=== PATIENT | male | born 1965 | race Two or more races ===

== ENCOUNTER 2022-08-07 15:35 | Inpatient (IN) | payer MEDICAID, OTHER ==
[~2022-08-07] VITALS: Ht 175.3 cm; Wt 91.7 kg
[2022-08-07] MEDS ORDERED: ceFAZolin 1GM/50ML 50 ML IV ONE (16:45)
[2022-08-07] MEDS ORDERED: LORazepam 2MG/ML-1ML VIAL IV ONE (16:45)
[2022-08-07 17:09] LABS: Basophils # (auto) 0 10 ^3/uL (0-0.2); Eosinophils # (auto) 0 10 ^3/uL (0-0.8); Hemoglobin 8.3 g/dL (13.5-17.5)
[2022-08-07 17:11] LABS: Basophils % (auto) 0.2 % (0.0-2.0); Lymphocytes # (auto) 0.5 10 ^3/uL (0.4-5.4); Lymphocytes % (auto) 3.4 % (10.0-50.0); Mean Corpuscular Hemoglobin 27.1 pg (28.0-32.0); Mean Corpuscular Hgb Conc. 30.7 g/dL (32.0-36.0); Mean Corpuscular Volume 88.3 fL (80.0-100.0); Monocytes % (auto) 7.3 % (0.0-12.0); Neutrophils # (auto) 12.5 10 ^3/uL (1.6-8.6); Neutrophils % (auto) 89.1 % (37.0-80.0); Red Blood Cells 3.06 10^6/uL (4.5-5.90); Red Cell Distribution Width 18.1 % (11.8-14.3); White Blood Cell 14.1 10^3/uL (4.4-10.8)
[2022-08-07 17:32] LABS: Albumin 2.3 g/dL (3.4-5.0); Calcium 8.8 mg/dL (8.5-10.1)
[2022-08-07 17:35] LABS: BUN/Creatinine Ratio 21.6 (10.0-20.0); Bilirubin, Total 0.8 mg/dL (0.2-1.0); Total Protein 7.1 g/dL (6.4-8.2)
[2022-08-07] MEDS ORDERED: VANCOMYCIN PER PHARMACY 0 MG IV SCH (18:00)
[2022-08-07] MEDS ORDERED: SODIUM CHLORIDE 0.9% 2,000 ML IV ONE (18:15)
[2022-08-07] MEDS ORDERED: SODIUM CHLORIDE 0.9% 500 ML IV ONE (18:15)
[2022-08-07 18:20] LABS: Potassium 5.7 mmol/L (3.5-5.1)
[2022-08-07 18:23] LABS: Lactic Acid w/Reflex 7.5 mmol/L (0.4-2.0)
[2022-08-07] MEDS ORDERED: ALBUTEROL SULF 2.5 MG/0.5ML(0.5%) NEB SOLN NEB ONE (18:45)
[2022-08-07] MEDS ORDERED: InsuLIN REG 1unit/0.01ml Soln (100units/ml) IV ONE (18:45)
[2022-08-07] MEDS ORDERED: DEXTROSE (50%) 50ML SYRG IV ONE (18:45)
[2022-08-07 18:59] LABS: INR 1.46 (0.9-1.15); Partial Thromboplastin Time 25.9 sec (24.6-33.4)
[2022-08-07] MEDS ORDERED: VANCOMYCIN 750mg/250ml 250 ML IV SCH (19:00)
[2022-08-07] MEDS ORDERED: CALCIUM GLUC 1,000mg/50ml-NS 50 ML IV ONE (19:15)
[2022-08-07] MEDS ORDERED: SODIUM BICARBONATE 8.4% INJ 50ML SYRINGE IV ONE (19:15)
[2022-08-07 20:42] LABS: Lactic Acid w/Reflex 4.3 mmol/L (0.4-2.0)
[2022-08-07] MEDS ORDERED: ETOMIDATE (2MG/ML) 20ML VIAL IV ONE ×2 (21:13→21:15)
[2022-08-07] MEDS ORDERED: SUCCINYLCHOLINE CHLORIDE 20 MG/ML 10ML VIAL IV ONE ×2 (21:14→21:15)
[2022-08-07] MEDS ORDERED: MIDAZOLAM DRIP 50 mg/50mL 50 ML IV ONE (21:18)
[2022-08-07] MEDS: MIDAZOLAM DRIP 50 mg/50mL 50 ML IV SCH (21:20)
[2022-08-07] MEDS: fentaNYL Drip 2500mCg/250mlNS 250 ML IV SCH (21:40)
[2022-08-07 21:52] LABS: Urine Bacteria NONE SEEN /hpf (None Seen); Urine Blood Negative /uL (Negative); Urine Specific Gravity 1.023 (1.001-1.035); Urine WBC 1 /hpf (0 - 3)
[2022-08-07 22:02] LABS: Alcohol, Urine < 3.0 mg/dL (0-10); Amphetamine Screen, Urine NEGATIVE (NEGATIVE); Barbiturate Scree,Urine NEGATIVE (NEGATIVE); Benzodiazephine Screen, Urine NEGATIVE (NEGATIVE); Cannabinoid Screen, Urine NEGATIVE (NEGATIVE); Cocaine Screen, Urine NEGATIVE (NEGATIVE); Opiate Scree,Urine NEGATIVE (NEGATIVE); Phencyclidine Screen, Urine NEGATIVE (NEGATIVE)
[2022-08-07] MEDS ORDERED: DEXTROSE 10% 250 ML IV ONE ×2 (22:02→22:15)
[2022-08-07] MEDS ORDERED: IODIXANOL 320MG/ML 100ML BTL IV ONE (22:50)
[2022-08-07 23:20] VITALS: BP 99/70
[2022-08-08] VITALS (60 sets, daily range): BP systolic 82–99; BP diastolic 49–70
[2022-08-08] MEDS: VANCOMYCIN 750mg/250ml 250 ML IV SCH ×2 (00:36→12:56)
[2022-08-08] MEDS ORDERED: MORPHINE SULFATE INJ 2 MG/ml SYRG IV PRN (00:45)
[2022-08-08] MEDS ORDERED: VANCOMYCIN PER PHARMACY 0 MG IV SCH (00:45)
[2022-08-08] MEDS ORDERED: ONDANSETRON HCL 4 MG/2 ML VIAL IV PRN (00:45)
[2022-08-08] MEDS ORDERED: NITROGLYCERIN 0.4 MG SL TAB SL PRN (00:45)
[2022-08-08] MEDS ORDERED: ACETAMINOPHEN 325 MG TAB PO PRN (00:45)
[2022-08-08] MEDS: PIPERACILLIN-TAZOB 3.375GM 100 ML IV SCH ×3 (04:16→17:27)
[2022-08-08] MEDS: SODIUM CHLORIDE 0.9% 1,000 ML IV SCH ×3 (05:56→23:12)
[2022-08-08] MEDS: NOREPINEPHRINE 8 MG/250ML KIT 250 ML IV SCH ×2 (06:33→17:23)
[2022-08-08 07:14] LABS: Basophils # (auto) 0.1 10 ^3/uL (0-0.2); Eosinophils # (auto) 0 10 ^3/uL (0-0.8); Hemoglobin 7.8 g/dL (13.5-17.5); Mean Corpuscular Hgb Conc. 32.1 g/dL (32.0-36.0); Neutrophils # (auto) 9.3 10 ^3/uL (1.6-8.6)
[2022-08-08 07:16] LABS: Basophils % (auto) 0.7 % (0.0-2.0); Eosinophils % (auto) 0.3 % (0.0-7.0); Hematocrit 24.3 % (41.0-53.0); Lymphocytes # (auto) 1.2 10 ^3/uL (0.4-5.4); Lymphocytes % (auto) 10.1 % (10.0-50.0); Mean Corpuscular Hemoglobin 27.6 pg (28.0-32.0); Mean Corpuscular Volume 85.9 fL (80.0-100.0); Monocytes % (auto) 8.3 % (0.0-12.0); Neutrophils % (auto) 80.6 % (37.0-80.0); Nucleated Red Blood Cells % 1.4 %; Red Blood Cells 2.82 10^6/uL (4.5-5.90); White Blood Cell 11.6 10^3/uL (4.4-10.8)
[2022-08-08 08:02] LABS: Albumin 2.2 g/dL (3.4-5.0); Calcium 8.7 mg/dL (8.5-10.1); Potassium 4.9 mmol/L (3.5-5.1)
[2022-08-08 08:05] LABS: BUN/Creatinine Ratio 22.8 (10.0-20.0); Bilirubin, Total 0.8 mg/dL (0.2-1.0); Total Protein 6.5 g/dL (6.4-8.2)
[2022-08-08] MEDS: MIDAZOLAM DRIP 50 mg/50mL 50 ML IV SCH ×3 (08:16→17:23)
[2022-08-08] MEDS: PANTOPRAZOLE 40 MG/10 ML VIAL INJ IV SCH ×2 (09:53→23:12)
[2022-08-08] MEDS ORDERED: PANTOPRAZOLE 40 MG/10 ML VIAL INJ IV SCH (10:00)
[2022-08-08] MEDS: ENOXAPARIN SOD 40 MG/0.4 ML SYRINGE SC SCH (10:08)
[2022-08-08] MEDS: fentaNYL Drip 2500mCg/250mlNS 250 ML IV SCH (17:27)
[2022-08-08] MEDS: DAKINS QUARTER STR 0.125% (NaHypochlorite) 473 ML TOPICAL SOL TOP SCH (23:13)
[2022-08-08] MEDS: NYSTATIN TOPICAL POWDER 15GM TOP SCH (23:13)
[2022-08-09] VITALS (91 sets, daily range): BP systolic 80–98; BP diastolic 35–70
[2022-08-09] MEDS: VANCOMYCIN 750mg/250ml 250 ML IV SCH ×2 (00:46→15:13)
[2022-08-09] MEDS: NOREPINEPHRINE 8 MG/250ML KIT 250 ML IV SCH ×4 (00:50→21:19)
[2022-08-09] MEDS: PIPERACILLIN-TAZOB 3.375GM 100 ML IV SCH ×3 (01:00→18:59)
[2022-08-09] MEDS: MIDAZOLAM DRIP 50 mg/50mL 50 ML IV SCH ×4 (02:32→23:22)
[2022-08-09 04:11] LABS: Basophils # (auto) 0.1 10 ^3/uL (0-0.2); Basophils % (auto) 0.7 % (0.0-2.0); Eosinophils # (auto) 0.1 10 ^3/uL (0-0.8); Lymphocytes # (auto) 0.8 10 ^3/uL (0.4-5.4)
[2022-08-09 04:14] LABS: Eosinophils % (auto) 0.8 % (0.0-7.0); Hematocrit 23.9 % (41.0-53.0); Hemoglobin 7.8 g/dL (13.5-17.5); Mean Corpuscular Hemoglobin 28.2 pg (28.0-32.0); Mean Corpuscular Hgb Conc. 32.6 g/dL (32.0-36.0); Mean Corpuscular Volume 86.5 fL (80.0-100.0); Monocytes # (auto) 1.2 10 ^3/uL (0-1.3); Monocytes % (auto) 9.7 % (0.0-12.0); Neutrophils # (auto) 10.3 10 ^3/uL (1.6-8.6); Neutrophils % (auto) 82.8 % (37.0-80.0); Nucleated Red Blood Cells % 0.9 %; Red Blood Cells 2.76 10^6/uL (4.5-5.90); Red Cell Distribution Width 17.7 % (11.8-14.3); White Blood Cell 12.5 10^3/uL (4.4-10.8)
[2022-08-09 04:31] LABS: Albumin 1.8 g/dL (3.4-5.0); Calcium 8.2 mg/dL (8.5-10.1); Potassium 4.4 mmol/L (3.5-5.1)
[2022-08-09 04:32] LABS: BUN/Creatinine Ratio 20.4 (10.0-20.0)
[2022-08-09 04:35] LABS: Bilirubin, Total 0.9 mg/dL (0.2-1.0)
[2022-08-09] MEDS: SODIUM CHLORIDE 0.9% 1,000 ML IV SCH (09:00)
[2022-08-09] MEDS: ENOXAPARIN SOD 40 MG/0.4 ML SYRINGE SC SCH (09:47)
[2022-08-09] MEDS: PANTOPRAZOLE 40 MG/10 ML VIAL INJ IV SCH ×2 (09:47→23:15)
[2022-08-09] MEDS: NYSTATIN TOPICAL POWDER 15GM TOP SCH ×2 (09:48→23:16)
[2022-08-09] MEDS: DAKINS QUARTER STR 0.125% (NaHypochlorite) 473 ML TOPICAL SOL TOP SCH ×2 (09:48→23:16)
[2022-08-09] MEDS: fentaNYL Drip 2500mCg/250mlNS 250 ML IV SCH (15:13)
[2022-08-09] MEDS: PHENYLEPHRINE IV 250 ML IV SCH (18:40)
[2022-08-09] MEDS ORDERED: CLINIMIX PER PHARMACY 0 ML IV SCH (20:30)
[2022-08-09] MEDS: AMINO ACID INFUSION IN D10W 1,000 ML IV NR (23:15)
[2022-08-09] MEDS: VANCOMYCIN 1GM/250ML 250 ML IV SCH (23:28)
[2022-08-09] MEDS: ACCU-CHEK COMFORT CURVE STRIP VI SCH (23:31)
[2022-08-09] MEDS: InsuLIN REG 1unit/0.01ml Soln (100units/ml) SC SCH (23:31)
[2022-08-10] VITALS (108 sets, daily range): BP systolic 76–136; BP diastolic 48–93
[2022-08-10] MEDS ORDERED: DEXTROSE (50%) 50ML SYRG IV SCH
[2022-08-10] MEDS: PIPERACILLIN-TAZOB 3.375GM 100 ML IV SCH ×3 (01:28→18:00)
[2022-08-10] MEDS: NOREPINEPHRINE 8 MG/250ML KIT 250 ML IV SCH ×5 (01:28→19:45)
[2022-08-10] MEDS: PHENYLEPHRINE IV 250 ML IV SCH ×3 (02:12→18:45)
[2022-08-10 03:51] LABS: Albumin 1.9 g/dL (3.4-5.0); Calcium 8.1 mg/dL (8.5-10.1); Magnesium 2.3 mg/dL (1.6-2.6); Potassium 4.4 mmol/L (3.5-5.1)
[2022-08-10 03:55] LABS: BUN/Creatinine Ratio 15.4 (10.0-20.0); Bilirubin, Total 0.8 mg/dL (0.2-1.0); Phosphorus 3.1 mg/dL (2.5-4.90); Total Protein 6.1 g/dL (6.4-8.2)
[2022-08-10] MEDS: ACCU-CHEK COMFORT CURVE STRIP VI SCH ×4 (05:28→23:44)
[2022-08-10] MEDS: InsuLIN REG 1unit/0.01ml Soln (100units/ml) SC SCH ×4 (05:28→23:48)
[2022-08-10] MEDS: MIDAZOLAM DRIP 50 mg/50mL 50 ML IV SCH ×3 (05:52→18:44)
[2022-08-10] MEDS: PANTOPRAZOLE 40 MG/10 ML VIAL INJ IV SCH ×2 (08:52→20:54)
[2022-08-10] MEDS: VANCOMYCIN 1GM/250ML 250 ML IV SCH ×2 (08:53→19:45)
[2022-08-10] MEDS: ENOXAPARIN SOD 40 MG/0.4 ML SYRINGE SC SCH (08:53)
[2022-08-10] MEDS: DAKINS QUARTER STR 0.125% (NaHypochlorite) 473 ML TOPICAL SOL TOP SCH ×2 (08:54→20:56)
[2022-08-10] MEDS: NYSTATIN TOPICAL POWDER 15GM TOP SCH ×2 (08:54→20:56)
[2022-08-10] MEDS: fentaNYL Drip 2500mCg/250mlNS 250 ML IV SCH (10:21)
[2022-08-10] MEDS ORDERED: ALBUMIN 25% 100 ML IV STA (10:58)
[2022-08-10] MEDS ORDERED: FUROSEMIDE INJECTION 100 MG in D5W 5% 100 ML IV STA (10:58)
[2022-08-10] MEDS: HYDROCORTISONE SOD SUCC 100 MG/2ML INJ VIAL IV SCH ×3 (12:13→23:44)
[2022-08-10] MEDS: AMINO ACID INFUSION IN D10W 1,000 ML IV NR (20:55)
[2022-08-10] MEDS: QUEtiapine FUMARATE 25 MG TAB PO SCH (20:55)
[2022-08-11] VITALS (106 sets, daily range): BP systolic 72–131; BP diastolic 42–85
[2022-08-11] MEDS: PIPERACILLIN-TAZOB 3.375GM 100 ML IV SCH ×3 (00:13→18:50)
[2022-08-11] MEDS: NOREPINEPHRINE 8 MG/250ML KIT 250 ML IV SCH ×5 (00:26→19:07)
[2022-08-11] MEDS: MIDAZOLAM DRIP 50 mg/50mL 50 ML IV SCH ×3 (00:27→16:03)
[2022-08-11] MEDS: PHENYLEPHRINE IV 250 ML IV SCH ×3 (03:26→20:15)
[2022-08-11 04:39] LABS: BUN/Creatinine Ratio 17.7 (10.0-20.0); Calcium 8.4 mg/dL (8.5-10.1); Magnesium 1.7 mg/dL (1.6-2.6); Phosphorus 4.6 mg/dL (2.5-4.90); Potassium 4.6 mmol/L (3.5-5.1)
[2022-08-11] MEDS: VANCOMYCIN 1GM/250ML 250 ML IV SCH ×2 (05:26→18:50)
[2022-08-11] MEDS: fentaNYL Drip 2500mCg/250mlNS 250 ML IV SCH (05:32)
[2022-08-11] MEDS: HYDROCORTISONE SOD SUCC 100 MG/2ML INJ VIAL IV SCH ×4 (05:49→23:42)
[2022-08-11] MEDS: ACCU-CHEK COMFORT CURVE STRIP VI SCH ×4 (06:02→23:42)
[2022-08-11] MEDS: InsuLIN REG 1unit/0.01ml Soln (100units/ml) SC SCH ×4 (06:04→23:44)
[2022-08-11 08:11] LABS: Basophils # (auto) 0 10 ^3/uL (0-0.2); Eosinophils # (auto) 0 10 ^3/uL (0-0.8); Hematocrit 26.2 % (41.0-53.0); Monocytes # (auto) 0.6 10 ^3/uL (0-1.3)
[2022-08-11 08:13] LABS: Basophils % (auto) 0.4 % (0.0-2.0); Hemoglobin 8.1 g/dL (13.5-17.5); Lymphocytes # (auto) 0.4 10 ^3/uL (0.4-5.4); Lymphocytes % (auto) 3.2 % (10.0-50.0); Mean Corpuscular Hemoglobin 26.9 pg (28.0-32.0); Mean Corpuscular Volume 86.8 fL (80.0-100.0); Monocytes % (auto) 5.5 % (0.0-12.0); Neutrophils # (auto) 10.2 10 ^3/uL (1.6-8.6); Neutrophils % (auto) 90.9 % (37.0-80.0); Nucleated Red Blood Cells % 1.6 %; Red Blood Cells 3.02 10^6/uL (4.5-5.90); Red Cell Distribution Width 18.1 % (11.8-14.3); White Blood Cell 11.2 10^3/uL (4.4-10.8)
[2022-08-11] MEDS: PANTOPRAZOLE 40 MG/10 ML VIAL INJ IV SCH ×2 (09:26→21:41)
[2022-08-11] MEDS: QUEtiapine FUMARATE 25 MG TAB PO SCH ×2 (09:27→21:42)
[2022-08-11] MEDS: ENOXAPARIN SOD 40 MG/0.4 ML SYRINGE SC SCH (09:27)
[2022-08-11] MEDS: DAKINS QUARTER STR 0.125% (NaHypochlorite) 473 ML TOPICAL SOL TOP SCH ×2 (09:33→21:42)
[2022-08-11] MEDS: NYSTATIN TOPICAL POWDER 15GM TOP SCH ×2 (09:34→21:42)
[2022-08-11] MEDS ORDERED: ALBUMIN 25% 50 ML IV SCH (17:30)
[2022-08-11] MEDS: DOBUTamine 1000MCG/ML 250 ML IV SCH (18:52)
[2022-08-11] MEDS: ALBUMIN 25% 50 ML IV SCH (18:54)
[2022-08-11] MEDS: FUROSEMIDE INJECTION 100 MG in SODIUM CHL 0.9% 100 ML IV SCH (19:20)
[2022-08-11] MEDS: AMINO ACID INFUSION IN D10W 1,000 ML IV NR (21:41)
[2022-08-11] MEDS: ATORVASTATIN 20 MG TAB PO SCH (21:42)
[2022-08-12] VITALS (105 sets, daily range): BP systolic 86–134; BP diastolic 34–83
[2022-08-12] MEDS: PIPERACILLIN-TAZOB 3.375GM 100 ML IV SCH ×2 (01:22→09:36)
[2022-08-12] MEDS: MIDAZOLAM DRIP 50 mg/50mL 50 ML IV SCH ×4 (01:23→18:45)
[2022-08-12] MEDS: fentaNYL Drip 2500mCg/250mlNS 250 ML IV SCH ×2 (01:25→18:44)
[2022-08-12] MEDS: DOBUTamine 1000MCG/ML 250 ML IV SCH ×3 (01:27→18:45)
[2022-08-12] MEDS: NOREPINEPHRINE 8 MG/250ML KIT 250 ML IV SCH ×2 (01:42→16:00)
[2022-08-12] MEDS: ALBUMIN 25% 50 ML IV SCH ×2 (01:51→09:38)
[2022-08-12 03:40] LABS: Eosinophils # (auto) 0 10 ^3/uL (0-0.8); Mean Corpuscular Hemoglobin 27.8 pg (28.0-32.0); Monocytes # (auto) 0.7 10 ^3/uL (0-1.3)
[2022-08-12 03:43] LABS: Basophils # (auto) 0.2 10 ^3/uL (0-0.2); Basophils % (auto) 1.4 % (0.0-2.0); Hematocrit 24.6 % (41.0-53.0); Hemoglobin 7.9 g/dL (13.5-17.5); Lymphocytes # (auto) 0.3 10 ^3/uL (0.4-5.4); Lymphocytes % (auto) 3.2 % (10.0-50.0); Mean Corpuscular Volume 86.8 fL (80.0-100.0); Monocytes % (auto) 6.5 % (0.0-12.0); Neutrophils # (auto) 9.8 10 ^3/uL (1.6-8.6); Neutrophils % (auto) 88.9 % (37.0-80.0); Nucleated Red Blood Cells % 1.9 %; Red Blood Cells 2.83 10^6/uL (4.5-5.90); Red Cell Distribution Width 18.2 % (11.8-14.3)
[2022-08-12 04:00] LABS: Albumin 2.3 g/dL (3.4-5.0); Calcium 8.4 mg/dL (8.5-10.1); Potassium 3.7 mmol/L (3.5-5.1)
[2022-08-12 04:04] LABS: BUN/Creatinine Ratio 19.8 (10.0-20.0); Bilirubin, Total 0.7 mg/dL (0.2-1.0); Phosphorus 3.2 mg/dL (2.5-4.90); Total Protein 6.5 g/dL (6.4-8.2)
[2022-08-12] MEDS: PHENYLEPHRINE IV 250 ML IV SCH ×3 (04:35→21:15)
[2022-08-12] MEDS: HYDROCORTISONE SOD SUCC 100 MG/2ML INJ VIAL IV SCH ×3 (05:51→18:43)
[2022-08-12] MEDS: ACCU-CHEK COMFORT CURVE STRIP VI SCH ×3 (05:51→18:43)
[2022-08-12] MEDS: InsuLIN REG 1unit/0.01ml Soln (100units/ml) SC SCH ×3 (05:55→18:45)
[2022-08-12] MEDS: VANCOMYCIN 1GM/250ML 250 ML IV SCH (07:43)
[2022-08-12] MEDS: FUROSEMIDE INJECTION 100 MG in SODIUM CHL 0.9% 100 ML IV SCH (09:17)
[2022-08-12] MEDS: QUEtiapine FUMARATE 25 MG TAB PO SCH ×2 (09:34→20:52)
[2022-08-12] MEDS: PANTOPRAZOLE 40 MG/10 ML VIAL INJ IV SCH ×2 (09:36→20:52)
[2022-08-12] MEDS: CARVEDILOL 3.125 MG TAB PO SCH (09:36)
[2022-08-12] MEDS: NYSTATIN TOPICAL POWDER 15GM TOP SCH ×2 (09:38→20:53)
[2022-08-12] MEDS: DAKINS QUARTER STR 0.125% (NaHypochlorite) 473 ML TOPICAL SOL TOP SCH ×2 (09:38→20:53)
[2022-08-12] MEDS: ENOXAPARIN SOD 40 MG/0.4 ML SYRINGE SC SCH (12:36)
[2022-08-12] MEDS ORDERED: Jevity 1.2 Cal/Fiber 1 Liter GT SCH (13:45)
[2022-08-12] MEDS: MEROPENEM 1GM IVPB 100 ML IV SCH (16:06)
[2022-08-12] MEDS ORDERED: AMINO ACID INFUSION IN D10W 1,000 ML IV NR (20:00)
[2022-08-12] MEDS: POTASSIUM CHL 20MEQ/100ML 100 ML IV SCH ×2 (20:51→21:52)
[2022-08-12] MEDS: ATORVASTATIN 20 MG TAB PO SCH (20:52)
[2022-08-13] VITALS (101 sets, daily range): BP systolic 94–120; BP diastolic 19–65
[2022-08-13] MEDS: DAKINS QUARTER STR 0.125% (NaHypochlorite) 473 ML TOPICAL SOL TOP SCH ×2 (00:05→10:43)
[2022-08-13] MEDS: QUEtiapine FUMARATE 25 MG TAB PO SCH ×2 (00:05→10:27)
[2022-08-13] MEDS: NYSTATIN TOPICAL POWDER 15GM TOP SCH ×2 (00:05→10:43)
[2022-08-13] MEDS: MAGNESIUM SULFATE 1GM/100ML 100 ML IV SCH (00:05)
[2022-08-13] MEDS: PANTOPRAZOLE 40 MG/10 ML VIAL INJ IV SCH ×2 (00:05→10:26)
[2022-08-13] MEDS: ATORVASTATIN 20 MG TAB PO SCH (00:05)
[2022-08-13] MEDS: POTASSIUM CHL 20MEQ/100ML 100 ML IV SCH ×6 (00:05→16:44)
[2022-08-13] MEDS: HYDROCORTISONE SOD SUCC 100 MG/2ML INJ VIAL IV SCH ×4 (00:08→17:42)
[2022-08-13] MEDS: ACCU-CHEK COMFORT CURVE STRIP VI SCH ×4 (00:08→17:47)
[2022-08-13] MEDS: MEROPENEM 1GM IVPB 100 ML IV SCH ×3 (00:12→16:52)
[2022-08-13] MEDS: DOBUTamine 1000MCG/ML 250 ML IV SCH ×4 (01:00→17:54)
[2022-08-13 04:21] LABS: Basophils # (auto) 0 10 ^3/uL (0-0.2); Eosinophils # (auto) 0 10 ^3/uL (0-0.8); Hematocrit 23.6 % (41.0-53.0); Lymphocytes # (auto) 0.3 10 ^3/uL (0.4-5.4)
[2022-08-13 04:23] LABS: Hemoglobin 7.9 g/dL (13.5-17.5); Lymphocytes % (auto) 2.8 % (10.0-50.0); Mean Corpuscular Hemoglobin 28.1 pg (28.0-32.0); Mean Corpuscular Hgb Conc. 33.3 g/dL (32.0-36.0); Mean Corpuscular Volume 84.3 fL (80.0-100.0); Monocytes # (auto) 0.5 10 ^3/uL (0-1.3); Monocytes % (auto) 4.6 % (0.0-12.0); Neutrophils # (auto) 9.8 10 ^3/uL (1.6-8.6); Neutrophils % (auto) 92.6 % (37.0-80.0); Red Cell Distribution Width 17.9 % (11.8-14.3); White Blood Cell 10.6 10^3/uL (4.4-10.8)
[2022-08-13 04:34] LABS: Albumin 2.1 g/dL (3.4-5.0); Calcium 8.1 mg/dL (8.5-10.1); Magnesium 1.8 mg/dL (1.6-2.6)
[2022-08-13 04:37] LABS: Bilirubin, Total 0.7 mg/dL (0.2-1.0); Phosphorus 2.2 mg/dL (2.5-4.90)
[2022-08-13 04:51] LABS: Potassium 2.5 mmol/L (3.5-5.1)
[2022-08-13 05:02] LABS: BUN/Creatinine Ratio 20.4 (10.0-20.0)
[2022-08-13] MEDS: PHENYLEPHRINE IV 250 ML IV SCH ×3 (05:35→22:15)
[2022-08-13] MEDS: InsuLIN REG 1unit/0.01ml Soln (100units/ml) SC SCH ×4 (05:55→17:48)
[2022-08-13] MEDS: FUROSEMIDE INJECTION 100 MG in SODIUM CHL 0.9% 100 ML IV SCH (05:56)
[2022-08-13] MEDS ORDERED: POTASSIUM CHL 20MEQ/100ML 100 ML IV SCH ×2 (06:45→07:00)
[2022-08-13] MEDS ORDERED: MAGNESIUM SULFATE 1GM/100ML 100 ML IV ONE ×2 (07:00→07:15)
[2022-08-13] MEDS ORDERED: POTASSIUM CHL 20MEQ/100ML 100 ML IV ONE (07:49)
[2022-08-13] MEDS: ENOXAPARIN SOD 40 MG/0.4 ML SYRINGE SC SCH (10:27)
[2022-08-13] MEDS: CARVEDILOL 3.125 MG TAB PO SCH (10:28)
[2022-08-13] MEDS: MIDAZOLAM DRIP 50 mg/50mL 50 ML IV SCH ×2 (10:31→20:53)
[2022-08-13] MEDS: fentaNYL Drip 2500mCg/250mlNS 250 ML IV SCH (13:55)
[2022-08-14] VITALS (103 sets, daily range): BP systolic 89–125; BP diastolic 10–86
[2022-08-14] MEDS: InsuLIN REG 1unit/0.01ml Soln (100units/ml) SC SCH ×4 (00:06→18:14)
[2022-08-14] MEDS: ACCU-CHEK COMFORT CURVE STRIP VI SCH ×4 (00:06→18:13)
[2022-08-14] MEDS: HYDROCORTISONE SOD SUCC 100 MG/2ML INJ VIAL IV SCH ×4 (00:06→18:16)
[2022-08-14] MEDS: POTASSIUM CHL 20MEQ/100ML 100 ML IV SCH ×11 (00:27→15:45)
[2022-08-14] MEDS: MAGNESIUM SULFATE 1GM/100ML 100 ML IV SCH ×3 (00:45→15:36)
[2022-08-14] MEDS: NOREPINEPHRINE 8 MG/250ML KIT 250 ML IV SCH ×2 (00:45→20:00)
[2022-08-14] MEDS: MEROPENEM 1GM IVPB 100 ML IV SCH ×3 (02:27→17:18)
[2022-08-14] MEDS: fentaNYL Drip 2500mCg/250mlNS 250 ML IV SCH ×2 (03:16→14:31)
[2022-08-14] MEDS: MIDAZOLAM DRIP 50 mg/50mL 50 ML IV SCH ×4 (03:28→21:23)
[2022-08-14] MEDS: DOBUTamine 1000MCG/ML 250 ML IV SCH ×3 (04:18→19:00)
[2022-08-14] MEDS: FUROSEMIDE INJECTION 100 MG in SODIUM CHL 0.9% 100 ML IV SCH (05:30)
[2022-08-14 05:55] LABS: Basophils # (auto) 0 10 ^3/uL (0-0.2); Basophils % (auto) 0.1 % (0.0-2.0); Eosinophils # (auto) 0 10 ^3/uL (0-0.8); Hematocrit 23.6 % (41.0-53.0); Lymphocytes # (auto) 0.5 10 ^3/uL (0.4-5.4); Mean Corpuscular Hgb Conc. 32.5 g/dL (32.0-36.0); Monocytes # (auto) 0.9 10 ^3/uL (0-1.3); Neutrophils # (auto) 5.6 10 ^3/uL (1.6-8.6)
[2022-08-14 05:58] LABS: Hemoglobin 7.7 g/dL (13.5-17.5); Lymphocytes % (auto) 7.3 % (10.0-50.0); Mean Corpuscular Volume 82.9 fL (80.0-100.0); Monocytes % (auto) 12.8 % (0.0-12.0); Neutrophils % (auto) 79.8 % (37.0-80.0); Nucleated Red Blood Cells % 0.6 %; Red Blood Cells 2.84 10^6/uL (4.5-5.90); Red Cell Distribution Width 18.2 % (11.8-14.3)
[2022-08-14 06:13] LABS: Calcium 8.4 mg/dL (8.5-10.1); Magnesium 2.2 mg/dL (1.6-2.6)
[2022-08-14 06:18] LABS: BUN/Creatinine Ratio 24.1 (10.0-20.0)
[2022-08-14 06:21] LABS: Potassium 2.7 mmol/L (3.5-5.1)
[2022-08-14] MEDS: PHENYLEPHRINE IV 250 ML IV SCH ×2 (06:35→14:55)
[2022-08-14] MEDS: POTASSIUM EFFERVESENT TAB 25 MEQ GT SCH (07:46)
[2022-08-14] MEDS ORDERED: POTASSIUM CHL 20MEQ/100ML 200 ML IV ONE (07:48)
[2022-08-14] MEDS: CARVEDILOL 3.125 MG TAB PO SCH (12:33)
[2022-08-14] MEDS: DAKINS QUARTER STR 0.125% (NaHypochlorite) 473 ML TOPICAL SOL TOP SCH ×2 (12:34→22:06)
[2022-08-14] MEDS: ENOXAPARIN SOD 40 MG/0.4 ML SYRINGE SC SCH (12:34)
[2022-08-14] MEDS: PANTOPRAZOLE 40 MG/10 ML VIAL INJ IV SCH ×2 (12:34→22:04)
[2022-08-14] MEDS: QUEtiapine FUMARATE 25 MG TAB PO SCH ×2 (12:34→22:04)
[2022-08-14] MEDS: NYSTATIN TOPICAL POWDER 15GM TOP SCH ×2 (12:35→22:06)
[2022-08-14] MEDS ORDERED: EPINEPHrine HCL 1 MG/10 ML SYRG IV ONE (15:41)
[2022-08-14] MEDS ORDERED: MAGNESIUM SULFATE 1GM/100ML 100 ML IV SCH (17:00)
[2022-08-14] MEDS: ATORVASTATIN 20 MG TAB PO SCH (22:04)
[2022-08-14] MEDS: FUROSEMIDE 40 MG/4 ML VIAL IV SCH (22:05)
[2022-08-15] VITALS (103 sets, daily range): BP systolic 86–120; BP diastolic 52–90
[2022-08-15] MEDS: MEROPENEM 1GM IVPB 100 ML IV SCH ×3 (00:20→17:36)
[2022-08-15] MEDS: HYDROCORTISONE SOD SUCC 100 MG/2ML INJ VIAL IV SCH ×4 (00:20→18:00)
[2022-08-15] MEDS: ACCU-CHEK COMFORT CURVE STRIP VI SCH ×4 (00:21→17:35)
[2022-08-15] MEDS: InsuLIN REG 1unit/0.01ml Soln (100units/ml) SC SCH ×4 (00:22→17:35)
[2022-08-15] MEDS: MIDAZOLAM DRIP 50 mg/50mL 50 ML IV SCH ×7 (00:30→22:17)
[2022-08-15] MEDS ORDERED: fentaNYL Drip 2500mCg/250mlNS 250 ML IV ONE (01:18)
[2022-08-15] MEDS: fentaNYL Drip 2500mCg/250mlNS 250 ML IV SCH ×3 (01:24→17:41)
[2022-08-15] MEDS: POTASSIUM CHL 20MEQ/100ML 100 ML IV SCH ×4 (02:24→21:49)
[2022-08-15 05:52] LABS: Basophils # (auto) 0 10 ^3/uL (0-0.2); Basophils % (auto) 0.1 % (0.0-2.0); Eosinophils # (auto) 0 10 ^3/uL (0-0.8); Hemoglobin 8.4 g/dL (13.5-17.5); Monocytes # (auto) 0.8 10 ^3/uL (0-1.3); Neutrophils # (auto) 9.4 10 ^3/uL (1.6-8.6); White Blood Cell 10.5 10^3/uL (4.4-10.8)
[2022-08-15 05:54] LABS: Hematocrit 25.4 % (41.0-53.0); Lymphocytes # (auto) 0.3 10 ^3/uL (0.4-5.4); Lymphocytes % (auto) 3.3 % (10.0-50.0); Mean Corpuscular Hemoglobin 27.5 pg (28.0-32.0); Mean Corpuscular Hgb Conc. 33.1 g/dL (32.0-36.0); Mean Corpuscular Volume 83.1 fL (80.0-100.0); Monocytes % (auto) 7.2 % (0.0-12.0); Neutrophils % (auto) 89.4 % (37.0-80.0); Nucleated Red Blood Cells % 0.3 %; Red Blood Cells 3.05 10^6/uL (4.5-5.90); Red Cell Distribution Width 17.9 % (11.8-14.3)
[2022-08-15] MEDS ORDERED: POTASSIUM CHL 20MEQ/100ML 100 ML IV ONE (05:57)
[2022-08-15 06:07] LABS: Potassium 3.4 mmol/L (3.5-5.1)
[2022-08-15 06:17] LABS: Albumin 1.9 g/dL (3.4-5.0); BUN/Creatinine Ratio 28.4 (10.0-20.0); Bilirubin, Total 0.7 mg/dL (0.2-1.0); Calcium 8.4 mg/dL (8.5-10.1); Magnesium 2.4 mg/dL (1.6-2.6); Total Protein 5.3 g/dL (6.4-8.2)
[2022-08-15] MEDS: DOBUTamine 1000MCG/ML 250 ML IV SCH ×5 (06:30→20:58)
[2022-08-15] MEDS: PHENYLEPHRINE IV 250 ML IV SCH ×2 (07:35→15:55)
[2022-08-15] MEDS: QUEtiapine FUMARATE 25 MG TAB PO SCH ×2 (10:06→22:00)
[2022-08-15] MEDS: PANTOPRAZOLE 40 MG/10 ML VIAL INJ IV SCH ×2 (10:06→22:58)
[2022-08-15] MEDS: ENOXAPARIN SOD 40 MG/0.4 ML SYRINGE SC SCH (10:07)
[2022-08-15] MEDS: DAKINS QUARTER STR 0.125% (NaHypochlorite) 473 ML TOPICAL SOL TOP SCH (10:07)
[2022-08-15] MEDS: NYSTATIN TOPICAL POWDER 15GM TOP SCH (10:07)
[2022-08-15] MEDS: POTASSIUM EFFERVESENT TAB 25 MEQ GT SCH (10:08)
[2022-08-15] MEDS: CARVEDILOL 3.125 MG TAB PO SCH (10:08)
[2022-08-15] MEDS: FUROSEMIDE 40 MG/4 ML VIAL IV SCH ×2 (10:09→17:36)
[2022-08-15] MEDS: AMIODARONE 450mg/250ml AE 250 ML IV SCH (12:48)
[2022-08-15] MEDS ORDERED: POTASSIUM CHL 20MEQ/100ML 100 ML IV SCH (19:45)
[2022-08-15] MEDS ORDERED: POTASSIUM CHL 20MEQ/100ML 300 ML IV ONE (19:50)
[2022-08-15] MEDS: MAGNESIUM SULFATE 1GM/100ML 100 ML IV SCH ×2 (21:56→22:51)
[2022-08-15] MEDS: ATORVASTATIN 20 MG TAB PO SCH (22:00)
[2022-08-15] MEDS ORDERED: AMIODARONE HCL 200 MG TAB PO SCH (22:00)
[2022-08-15] MEDS ORDERED: LIDOCAINE 4MG/ML IV SOLN 500 ML IV ONE (22:32)
[2022-08-15] MEDS: LIDOCAINE 4MG/ML IV SOLN 500 ML IV SCH (22:42)
[2022-08-16] VITALS (44 sets, daily range): BP systolic 63–95; BP diastolic 36–66
[2022-08-16] MEDS: MEROPENEM 1GM IVPB 100 ML IV SCH (00:09)
[2022-08-16] MEDS: PANTOPRAZOLE 40 MG/10 ML VIAL INJ IV SCH (00:09)
[2022-08-16] MEDS: HYDROCORTISONE SOD SUCC 100 MG/2ML INJ VIAL IV SCH ×2 (00:09→06:55)
[2022-08-16] MEDS: PHENYLEPHRINE IV 250 ML IV SCH ×2 (00:15→05:48)
[2022-08-16] MEDS: DAKINS QUARTER STR 0.125% (NaHypochlorite) 473 ML TOPICAL SOL TOP SCH ×2 (00:25→10:00)
[2022-08-16] MEDS: NYSTATIN TOPICAL POWDER 15GM TOP SCH ×2 (00:26→10:00)
[2022-08-16] MEDS: POTASSIUM CHL 20MEQ/100ML 100 ML IV SCH ×3 (00:28→04:34)
[2022-08-16] MEDS: fentaNYL Drip 2500mCg/250mlNS 250 ML IV SCH ×2 (00:30→07:25)
[2022-08-16] MEDS: ACCU-CHEK COMFORT CURVE STRIP VI SCH ×2 (00:40→07:03)
[2022-08-16 00:42] LABS: Albumin 1.9 g/dL (3.4-5.0); BUN/Creatinine Ratio 31.9 (10.0-20.0); Calcium 8.5 mg/dL (8.5-10.1); Magnesium 2.5 mg/dL (1.6-2.6); Potassium 3.7 mmol/L (3.5-5.1)
[2022-08-16 00:44] LABS: Bilirubin, Total 0.7 mg/dL (0.2-1.0); Total Protein 5.6 g/dL (6.4-8.2)
[2022-08-16] MEDS: MIDAZOLAM DRIP 50 mg/50mL 50 ML IV SCH ×2 (02:12→07:26)
[2022-08-16] MEDS ORDERED: LIDOCAINE 4MG/ML IV SOLN 500 ML IV ONE (03:08)
[2022-08-16] MEDS ORDERED: DOBUTamine 1000MCG/ML 250 ML IV SCH (03:30)
[2022-08-16 03:34] LABS: Basophils # (auto) 0 10 ^3/uL (0-0.2); Basophils % (auto) 0.1 % (0.0-2.0); Eosinophils # (auto) 0 10 ^3/uL (0-0.8); Hemoglobin 8.9 g/dL (13.5-17.5); Lymphocytes # (auto) 0.6 10 ^3/uL (0.4-5.4); Mean Corpuscular Hemoglobin 26.3 pg (28.0-32.0); Neutrophils % (auto) 87.8 % (37.0-80.0)
[2022-08-16 03:37] LABS: Hematocrit 28.3 % (41.0-53.0); Lymphocytes % (auto) 4.9 % (10.0-50.0); Mean Corpuscular Hgb Conc. 31.6 g/dL (32.0-36.0); Mean Corpuscular Volume 83.2 fL (80.0-100.0); Monocytes % (auto) 7.2 % (0.0-12.0); Neutrophils # (auto) 11.6 10 ^3/uL (1.6-8.6); Nucleated Red Blood Cells % 0.6 %; Red Cell Distribution Width 18.6 % (11.8-14.3); White Blood Cell 13.2 10^3/uL (4.4-10.8)
[2022-08-16 03:50] LABS: Calcium 8.3 mg/dL (8.5-10.1); Potassium 3.6 mmol/L (3.5-5.1)
[2022-08-16 03:52] LABS: Albumin 1.9 g/dL (3.4-5.0); BUN/Creatinine Ratio 35.9 (10.0-20.0); Magnesium 2.3 mg/dL (1.6-2.6)
[2022-08-16 03:55] LABS: Bilirubin, Total 0.7 mg/dL (0.2-1.0); Total Protein 5.7 g/dL (6.4-8.2)
[2022-08-16] MEDS: AMIODARONE 450mg/250ml AE 250 ML IV SCH (04:35)
[2022-08-16] MEDS: NOREPINEPHRINE 8 MG/250ML KIT 250 ML IV SCH (04:38)
[2022-08-16] MEDS ORDERED: MAGNESIUM SULFATE 1GM/100ML 100 ML IV SCH (07:00)
[2022-08-16] MEDS ORDERED: POTASSIUM CHL 20MEQ/100ML 100 ML IV SCH (07:00)
[2022-08-16] MEDS ORDERED: VASOPRESSIN 20 UNITS in SODIUM CHL 0.9% 99 ML IV SCH (07:00)
[2022-08-16] MEDS: InsuLIN REG 1unit/0.01ml Soln (100units/ml) SC SCH ×2 (07:04)
[2022-08-16] MEDS: LIDOCAINE 4MG/ML IV SOLN 500 ML IV SCH (07:27)
[2022-08-16] MEDS ORDERED: PHENYLEPHRINE INJ 80 MG in SODIUM CHL 0.9% 242 ML IV SCH (08:00)
[2022-08-16] MEDS ORDERED: NOREPINEPHRINE BITARTRATE 32 MG in SODIUM CHL 0.9% 218 ML IV SCH (08:00)
[2022-08-16] MEDS ORDERED: EPINEPHrine HCL 250 ML IV ONE (08:13)
[2022-08-16] MEDS ORDERED: EPINEPHrine HCL 250 ML IV SCH (08:15)
[2022-08-16] MEDS ORDERED: PHENYLEPHRINE IV 250 ML IV ONE (08:26)
[2022-08-16] MEDS ORDERED: DOPamine 1600MCG/ML D5W 250 ML IV ONE (09:00)
[2022-08-16] MEDS ORDERED: DOPamine 1600MCG/ML D5W 250 ML IV SCH (09:15)
[2022-08-16] MEDS ORDERED: POTASSIUM PHOSPHATE 44 MEQ in D5W 5% 250 ML IV ONE (09:45)
[2022-08-16] MEDS: POTASSIUM EFFERVESENT TAB 25 MEQ GT SCH (10:00)
[2022-08-16] MEDS: ENOXAPARIN SOD 40 MG/0.4 ML SYRINGE SC SCH (10:00)
[2022-08-16] MEDS: CARVEDILOL 3.125 MG TAB PO SCH (10:00)
[2022-08-16] MEDS: QUEtiapine FUMARATE 25 MG TAB PO SCH (10:00)
[2022-08-16] MEDS ORDERED: NOREPINEPHRINE 8 MG/250ML KIT 250 ML IV ONE (10:05)
[2022-08-16] MEDS ORDERED: EPINEPHrine HCL 1 MG/10 ML SYRG IV ONE (10:15)
== END 2022-08-16 10:16 | DRG 720 ==
LOC: EDBD 15:35 → ER 15:35 → EDBD 08-08 00:46 → TELE 08-08 00:46 → ICU WEST 08-08 09:11
PROVIDERS: ADMIT Nurse Practitioner; ATTEND Internal Medicine Pulmonary Disease
PROC: 5A1955Z Respiratory Ventilation, Greater than 96 Consecutive Hours (ICD-10-PCS; principal; 2022-08-07)
PROC: 0BH17EZ Insertion of Endotracheal Airway into Trachea, Via Natural or Artificial Opening (ICD-10-PCS; 2022-08-07)
PROC: 0W993ZZ Drainage of Right Pleural Cavity, Percutaneous Approach (ICD-10-PCS; 2022-08-12)
PROC: 5A12012 Performance of Cardiac Output, Single, Manual (ICD-10-PCS; 2022-08-14)
PROC: 5A12012 Performance of Cardiac Output, Single, Manual (ICD-10-PCS; 2022-08-16)
DX: A41.89 Other specified sepsis (principal); J96.01 Acute respiratory failure with hypoxia; R65.21 Severe sepsis with septic shock; G93.41 Metabolic encephalopathy; I50.43 Acute on chronic combined systolic (congestive) and diastolic (congestive) heart failure; J91.8 Pleural effusion in other conditions classified elsewhere; J15.0 Pneumonia due to Klebsiella pneumoniae; I46.9 Cardiac arrest, cause unspecified; R73.9 Hyperglycemia, unspecified; M86.8X7 Other osteomyelitis, ankle and foot; I96 Gangrene, not elsewhere classified; Z20.822 Contact with and (suspected) exposure to COVID-19; N17.9 Acute kidney failure, unspecified; I42.9 Cardiomyopathy, unspecified; E88.09 Other disorders of plasma-protein metabolism, not elsewhere classified; D50.9 Iron deficiency anemia, unspecified; E87.6 Hypokalemia; I47.20 Ventricular tachycardia, unspecified; F19.90 Other psychoactive substance use, unspecified, uncomplicated
CPT/HCPCS: 36415; 36600; 70450; 71045; 71260; 72125; 73620; 74177; 76604; 76856; 76942; 80048; 80053; 80061; 80069; 80202; 80307; 80320; 81001; 82140; 82565; 82805; 82962; 83036; 83605; 83735; 83880; 83986; 84100; 84132; 84443; 84484; 85025; 85379; 85610; 85652; 85730; 86850; 86900; 86901; 87040; 87070; 87077; 87081; 87186; 87205; 89051; 92950; 93306; 93925; 93970; 94002; 94003; 94640; 99291; C9113; G0378; J0171; J0330; J0690; J1815; J2185; J2250; J2543; J3480; J7060; P9047; Q9967